=== PATIENT | male | born 1995 ===

== ENCOUNTER 2019-01-31 01:16 | Emergency (ER) | payer SELFPAY ==
[2019-01-31 01:49] VITALS: BP 143/81; PULSE 74; RESP 17; TEMP 97.9; O2SAT 99
--- NOTE | 2019-01-31 02:02 | ED PDOC ---
HPI: Wound Care - HPI Time Seen by Provider: 01/31/19 01:47 Chief Complaint (Nursing): Abnormal Skin Integrity Chief Complaint (Provider): left thumb laceration History Per: Patient History Of Present Illness: 23 y/o male presents for evaluation of left thumb laceration sustained 14.5 hours ago. Patient states he cut it opening a can of tuna fish, and tonight while cleaning it it started bleeding again, which prompted ED visit. Denies numbness/weakness left upper extremity, limitation of movement. Last Tetanus unknown Past Medical History Reviewed: Historical Data, Nursing Documentation, Vital Signs Vital Signs: Last Vital Signs Temp 97.9 F 01/31/19 01:38 Pulse 74 01/31/19 01:38 Resp 17 01/31/19 01:38 BP 143/81 01/31/19 01:38 Pulse Ox 99 01/31/19 01:38 - Medical History PMH: No Chronic Diseases - Surgical History Surgical History: No Surg Hx - Family History Family History: States: No Known Family Hx - Living Arrangements Living Arrangements: With Family - Immunization History Hx Tetanus Toxoid Vaccination: Yes Hx Influenza Vaccination: No Hx Pneumococcal Vaccination: No - Home Medications Home Medications: Ambulatory Orders Medication Instructions Recorded Naproxen [Naprosyn] 500 mg PO BID PRN #30 tab 02/05/14 Cephalexin [Keflex] 500 mg PO Q6 #27 capsule 01/31/19 - Allergies Allergies/Adverse Reactions: Allergies Allergy/AdvReac Type Severity Reaction Status Date / Time No Known Allergies Allergy Verified 06/18/14 12:16 Review of Systems ROS Statement: Except As Marked, All Systems Reviewed And Found Negative Musculoskeletal: Positive for: Hand Pain Physical Exam - Reviewed Nursing Documentation Reviewed: Yes Vital Signs Reviewed: Yes - Physical Exam Appears: Positive for: Well, Non-toxic, No Acute Distress Pulses-Radial (L): 2+ Pulses-Radial (R): 2+ Extremity: Positive for: Normal ROM, Other (1cm superficial laceration proximal left thumb, palmar aspect. No active bleeding, surrounding edema/erythema or tenderness noted. FROM. Distal NV/motor intact) - ECG O2 Sat by Pulse Oximetry: 99 - Progress ED Course And Treament: -wound care -Adacel IM Patient educated on wound healing by secondary intention. Wound irrigated with 200mL NS, steristrips applied, bandage applied Patient educated on findings, discharged with rx Keflex (dose given in ED) Advised follow up PMD within 2-3 days Return precautions given Disposition - Clinical Impression Clinical Impression: Laceration of left hand - Patient ED Disposition Is Patient to be Admitted: No Counseled Patient/Family Regarding: Diagnosis, Need For Followup - Disposition Referrals: [facility] [Outside] Disposition: Routine/Home Disposition Time: 02:12 Condition: STABLE Prescriptions: Cephalexin [Keflex] 500 mg PO Q6 #27 capsule Instructions: Wound Care, Laceration Repair
[2019-01-31] MEDS ORDERED: Tdap Vaccine 0.5 ml Vial (10-64 yrs) IM ONE (02:20)
[2019-01-31] MEDS: Tdap Vaccine 0.5 ml Vial (10-64 yrs) IM ONE (02:22)
== END 2019-01-31 02:50 | disposition home or self-care (01) ==
LOC: H.ER 01:16
DX: S61.012A Laceration without foreign body of left thumb without damage to nail, initial encounter (principal); W26.8XXA Contact with other sharp object(s), not elsewhere classified, initial encounter; Y92.89 Other specified places as the place of occurrence of the external cause